=== PATIENT | male | born 1990 | race Caucasian/White ===

== ENCOUNTER 2023-03-05 17:47 | Emergency (ER) | payer OTHER ==
[~2023-03-05] VITALS: Ht 177.8 cm; Wt 113.0 kg
[~2023-03-05 17:47] MED LIST: CEPH500T MT
[2023-03-05 18:20] VITALS: BP 129/90
[2023-03-05 18:51] LABS: BASOPHILS % 0.4 % (0.0-2.0); EOSINOPHILS % 3.1 % (0.0-5.0); HEMATOCRIT. 41.5 % (42.0-52.0); HEMOGLOBIN. 14.4 g/dL (14.0-18.0); LYMPHOCYTES % 41.6 % (20.0-50.0); MEAN CORPUSCULAR HEMOGLOBIN 29.5 pg (28.0-32.0); MEAN CORPUSCULAR VOLUME 85.3 fL (80.0-94.0); MEAN PLATELET VOLUME 6.9 fl (7.4-10.4); NEUTROPHILS % 46.9 % (40.0-76.0); PLATELET 302 x1000/uL (130-400); RED BLOOD CELL COUNT 4.87 mill/uL (4.7-6.1); RED CELL DISTRIBUTION WIDTH 13.1 % (11.6-14.6)
[2023-03-05 19:03] LABS: CHLORIDE 111 mEq/L (98-107)
[2023-03-05] MEDS ORDERED: FAMO-135 MT (21:37)
[2023-03-05] MEDS ORDERED: MAGNESIUM/ALUMINUM HYDROXIDE/SIMETHICONE 30ML UDC PO STA ×2 (21:40)
[2023-03-05] MEDS ORDERED: DICYCLOMINE 10 MG/5 ML ORAL SYR PO STA (21:40)
== END 2023-03-05 23:20 | disposition home or self-care (01) ==
LOC: ER 17:47
DX: R10.13 Epigastric pain (principal)
CPT/HCPCS: 36415; 76700; 80053; 85025; 93005; 99285